=== PATIENT | male | born 1955 | race Caucasian/White ===

== ENCOUNTER 2023-12-26 13:55 | Outpatient (CLI) | payer MEDICARE, SELFPAY | END 2023-12-26 13:56 | disposition home or self-care (01) | PROVIDERS: PCP Family Medicine; Visit Provider Family Medicine | DX: R53.83 Other fatigue (principal); Z13.29 Encounter for screening for other suspected endocrine disorder; Z13.21 Encounter for screening for nutritional disorder | CPT/HCPCS: 80053; 82306; 84443 ==

== ENCOUNTER 2024-01-30 10:27 | Outpatient (CLI) | payer MEDICARE, SELFPAY ==
--- NOTE | 2024-02-14 12:39 | W.PM.SLEEP ---
Sleep Study Details Details Interpreting Provider: Wally Date of Sleep Study: 01/30/24 Sleep Study Details: STUDY TYPE:? Home unattended ? BMI:? 29 ORDERING PROVIDER:Allen Paulino INDICATION:? Concern about sleep appy ? SLEEP SUMMARY:? 242 minutes monitored RESPIRATORY SUMMARY:? AHI 16.1 per rule 1A, 10.4 per CMS guideline Low oxygen 83 5% of study oxygen less than 90% Snoring 86.9% PERIODIC LIMB MOVEMENTS OF SLEEP:? Not recorded CARDIAC:? Range 49-100, mean 57.3 beats per minute IMPRESSION:? Mild apnea per CMS guideline, moderate apnea per rule 1A with significant desaturation. 12 minutes of the study oxygen was less than 90% RECOMMENDATION: Treatment options include CPAP or dental appliance.
== END 2024-01-30 10:28 | disposition home or self-care (01) ==
PROVIDERS: PCP Family Medicine; Visit Provider Family Medicine
DX: G47.33 Obstructive sleep apnea (adult) (pediatric) (principal)
CPT/HCPCS: 95806

== ENCOUNTER 2024-04-30 06:28 | Outpatient (CLI) | payer MEDICARE, SELFPAY ==
--- NOTE | 2024-04-30 07:49 | P.ANES_ITS ---
Anesthesia Charges Start Date/Time Anesthesia Start Date: 04/30/24 Anesthesia Start Time: 07:17 Stop Date/Time Anesthesia Stop Date: 04/30/24 Anesthesia Stop Time: 07:46 Summary Extremes of Age - Over 70 or under 1: CHAINSTITCH PANTS OUTSEAMER Coding CPT Codes CPT Codes: ELOISE LWR INTST NDSC NOS - [id number] ([id number]) P2 - PATIENT W/MILD SYST DISEASE, QK - HEALTH CARE FACILITY ADMINISTRATOR 2-4 CNCRNT ANEParam PROC, QX - CHAINSTITCH PANTS OUTSEAMER SVC W/ MD MED DIRECTION Additional Codes: Summary - Extremes of Age - Over 70 or under 1: CHAINSTITCH PANTS OUTSEAMER ([id number])
--- NOTE | 2024-04-30 07:49 | W.ANESCHARGE ---
Anesthesia Charges Start Date/Time Anesthesia Start Date: 04/30/24 Anesthesia Start Time: 07:17 Stop Date/Time Anesthesia Stop Date: 04/30/24 Anesthesia Stop Time: 07:46 Summary Extremes of Age - Over 70 or under 1: BACK HANGER Coding CPT Codes CPT Codes: ELOISE LWR INTST NDSC NOS - [id number] ([id number]) P2 - PATIENT W/MILD SYST DISEASE, QK - CHARGE ACCOUNT IDENTIFICATION CLERK 2-4 CNCRNT ANEParam PROC, QX - BACK HANGER SVC W/ MD MED DIRECTION Additional Codes: Summary - Extremes of Age - Over 70 or under 1: BACK HANGER ([id number])
--- NOTE | 2024-04-30 07:55 | P.ANES_ITS ---
Anesthesia Charges Start Date/Time Anesthesia Start Date: 04/30/24 Anesthesia Start Time: 07:17 Stop Date/Time Anesthesia Stop Date: 04/30/24 Anesthesia Stop Time: 07:46 Summary Extremes of Age - Over 70 or under 1: MDA Coding CPT Codes CPT Codes: ANES LWR INTST NDSC NOS - [id number] ([id number]) QK - STAFF TRAINING AND DEVELOPMENT MANAGER 2-4 CNCRNT ANES PROC, QX - PILOT PLANT TECHNICIAN SVC W/ MD MED DIRECTION, P2 - PATIENT W/MILD SYST DISEASE Additional Codes: Summary - Extremes of Age - Over 70 or under 1: MDA ([id number])
== END 2024-04-30 06:29 | disposition home or self-care (01) ==
LOC: OP CLINIC 06:30
PROVIDERS: PCP Family Medicine; Visit Provider Surgery
DX: Z12.11 Encounter for screening for malignant neoplasm of colon (principal); D12.4 Benign neoplasm of descending colon; K57.30 Diverticulosis of large intestine without perforation or abscess without bleeding
CPT/HCPCS: 00811; 45385; 88305; 99100; J2704

== ENCOUNTER 2024-05-25 07:43 | Outpatient (CLI) | payer MEDICARE, SELFPAY | END 2024-05-25 07:44 | disposition home or self-care (01) | LOC: NFLDREF 05-29 05:43 | PROVIDERS: PCP Family Medicine; Referring Provider Family Medicine; Visit Provider Family Medicine | DX: N18.9 Chronic kidney disease, unspecified (principal); R73.09 Other abnormal glucose; N40.0 Benign prostatic hyperplasia without lower urinary tract symptoms; R53.83 Other fatigue; C91.10 Chronic lymphocytic leukemia of B-cell type not having achieved remission; Z13.220 Encounter for screening for lipoid disorders; Z13.21 Encounter for screening for nutritional disorder; Z13.29 Encounter for screening for other suspected endocrine disorder; Z12.5 Encounter for screening for malignant neoplasm of prostate | CPT/HCPCS: 80053; 80061; 82306; 84403; 84443; G0103 ==

== ENCOUNTER 2024-08-24 14:05 | Outpatient (CLI) | payer MEDICARE, SELFPAY | END 2024-08-24 14:06 | disposition home or self-care (01) | LOC: NPINS 14:09 | PROVIDERS: PCP Family Medicine; Visit Provider Dermatology | DX: H10.33 Unspecified acute conjunctivitis, bilateral (principal); L57.0 Actinic keratosis; D22.5 Melanocytic nevi of trunk; L82.1 Other seborrheic keratosis; L81.4 Other melanin hyperpigmentation | CPT/HCPCS: 87070 ==

== ENCOUNTER 2024-10-22 10:07 | Outpatient (CLI) | payer MEDICARE, SELFPAY | END 2024-10-22 10:08 | disposition home or self-care (01) | PROVIDERS: PCP Family Medicine; Visit Provider Family Medicine | DX: Z01.818 Encounter for other preprocedural examination (principal) | CPT/HCPCS: 80048; 83735 ==